=== PATIENT | female | born 1995 | race Caucasian/White ===

== ENCOUNTER 2017-07-09 19:57 | Emergency (ER) | payer OTHER ==
[2017-07-09] MEDS ORDERED: ACETAMINOPHEN 325 MG TABLET PO ONE (21:38)
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
[2017-07-09 22:15] LABS: ABSOLUTE EOSINOPHILS # (AUTO) 0.1 10^3/uL (0.0-0.6); ABSOLUTE LYMPHOCYTES (AUTO) 2.3 10^3/uL (0.5-4.7); ABSOLUTE MONOCYTES (AUTO) 0.3 10^3/uL (0.1-1.4); ABSOLUTE NEUT (AUTO) 6.1 10^3/uL (1.7-8.2); BASOPHILS % (AUTO) 0.4 % (0-2); EOSINOPHILS % (AUTO) 0.7 % (0-6); HEMATOCRIT 40.1 % (36.0-47.0); LYMPHOCYTES % (AUTO) 26.5 % (13-45); MEAN CORPUSCULAR HEMOGLOBIN 30.1 pg (27.0-33.4); MEAN CORPUSCULAR VOLUME 86 fl (80-97); MONOCYTES % (AUTO) 3.6 % (3-13); PLATELET COUNT 246 10^3/uL (150-450); RED BLOOD COUNT 4.65 10^6/uL (3.72-5.28); RED CELL DISTRIBUTION WIDTH 13.8 % (11.5-14.0); SEGMENTED NEUTROPHILS % (AUTO) 68.8 % (42-78); TOTAL CELLS COUNTED % (AUTO) 100 %; WHITE BLOOD COUNT 8.9 10^3/uL (4.0-10.5)
[2017-07-09 22:31] LABS: ALANINE AMINOTRANSFERASE 28 U/L (5-35); ALBUMIN 4.6 g/dL (3.7-5.6); ALKALINE PHOSPHATASE 85 U/L (50-135); ANION GAP 12 (5-19); ASPARTATE AMINO TRANSFERASE 23 U/L (5-30); BILIRUBIN,DIRECT 0.2 mg/dL (0.0-0.4); BILIRUBIN,TOTAL 0.9 mg/dL (0.2-1.3); BLOOD UREA NITROGEN 15 mg/dL (7-20); CALCIUM 9.8 mg/dL (8.4-10.2); CARBON DIOXIDE 27 mmol/L (22-30); CHLORIDE 103 mmol/L (98-107); GLUCOSE 93 mg/dL (75-110); POTASSIUM 3.9 mmol/L (3.6-5.0); SODIUM 141.6 mmol/L (137-145); TOTAL PROTEIN 7.8 g/dL (6.3-8.2)
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
[2017-07-10 01:56] VITALS: BP 109/76
== END 2017-07-10 01:56 | disposition home or self-care (01) ==
LOC: ER 19:57
DX: S09.90XA Unspecified injury of head, initial encounter (principal); H53.8 Other visual disturbances; R51 Headache; R10.30 Lower abdominal pain, unspecified; M54.5 Low back pain; V43.52XA Car driver injured in collision with other type car in traffic accident, initial encounter; R03.0 Elevated blood-pressure reading, without diagnosis of hypertension
CPT/HCPCS: 36415; 70450; 74177; 80053; 84703; 85025; 99284

== ENCOUNTER 2018-03-27 22:39 | Emergency (ER) | payer MEDICAID, OTHER ==
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
[2018-03-28] MEDS ORDERED: ONDANSETRON ODT 4 MG TAB (6 TAB/ER DISP) PO PRN (02:12)
[2018-03-28 02:25] VITALS: BP 115/79
== END 2018-03-28 02:25 | disposition home or self-care (01) ==
LOC: ER 22:39
DX: S09.90XA Unspecified injury of head, initial encounter (principal); R11.2 Nausea with vomiting, unspecified; R51 Headache; W18.2XXA Fall in (into) shower or empty bathtub, initial encounter
CPT/HCPCS: 70450; 99283

== ENCOUNTER 2018-04-17 20:58 | Emergency (ER) | payer SELFPAY ==
[2018-04-17 23:42] LABS: A TYPE INFLUENZA AG NEGATIVE (NEGATIVE); B INFLUENZA AG NEGATIVE (NEGATIVE)
[2018-04-18] MEDS ORDERED: NORMAL SALINE 1000 ML 1,000 ML IV ONE (00:21)
[2018-04-18] MEDS ORDERED: IBUPROFEN 600 MG TABLET PO ONE (00:22)
[2018-04-18] MEDS ORDERED: ONDANSETRON HCL INJ/PF 4 MG/2 ML SDV IV ONE (00:24)
--- NOTE | 2018-04-18 00:27 | ER Document Report ---
Addendum entered and electronically signed by ASAD LOWE PA-C 04/18/18 14:11: Discharge - Discharge Clinical Impression: Viral syndrome Condition: Good Disposition: HOME, SELF-CARE Prescriptions: RX: Naproxen 500 mg PO BID 5 Days #10 tablet Ondansetron [Zofran Odt 4 mg Tablet] 1 - 2 tab PO Q4H PRN #15 tab.rapdis PRN Reason: For Nausea/Vomiting Addendum entered and electronically signed by GILBERT TRUJILLO PA-C 04/18/18 03:46: Discharge - Discharge Clinical Impression: Viral syndrome Condition: Good Disposition: HOME, SELF-CARE Prescriptions: Naproxen 500 mg PO BID 5 Days #10 tablet Ondansetron [Zofran Odt 4 mg Tablet] 1 - 2 tab PO Q4H PRN #15 tab.rapdis PRN Reason: For Nausea/Vomiting Original Note: ED General - General TRAVEL OUTSIDE OF THE [place] IN LAST 30 DAYS: No <ASAD LOWE - Last Filed: 04/18/18 00:22> - General Mode of Arrival: Ambulatory Information source: Patient - HPI Patient complains to provider of: Flu, strep throat, dehydrated, dizzy, fever of 102.3 at 8 PM. Onset: Just prior to arrival <GILBERT TRUJILLO - Last Filed: 04/18/18 03:35> - General Chief Complaint: Flu Symptoms Stated Complaint: FLU SYMPTOMS Time Seen by Provider: 04/17/18 23:59 Notes: 22-year-old female overall well-appearing with no medical problems presents to the emergency department with flulike symptoms, sore throat, complains of dehydration, dizziness, T-max 102.3 at 2000 tonight, chills, shortness of breath, vomiting 2 times. She said symptoms started yesterday. She took DayQuil and NyQuil at 8:00 when her temperature was high and then did not respond so she came to the emergency department. She complains of fever, headache, chills, shortness of breath, nausea, vomiting, dizziness, lightheadedness. She denies cough, abdominal pain, urinary symptoms, rhinorrhea. (ASAD LOWE) - Related Data Allergies/Adverse Reactions: No Known Allergies Allergy (Verified 07/09/17 19:58) Past Medical History - Social History Smoking Status: Unknown if Ever Smoked Family History: Reviewed & Not Pertinent Patient has suicidal ideation: No Patient has homicidal ideation: No Renal/ Medical History: Denies: Hx Peritoneal Dialysis <KEITHRAKELGAMALASAD - Last Filed: 04/18/18 00:22> - General Information source: Patient <GILBERT TRUJILLO - Last Filed: 04/18/18 03:35> Review of Systems - Review of Systems Constitutional: See HPI EENT: See HPI Cardiovascular: See HPI Respiratory: See HPI Gastrointestinal: See HPI Genitourinary: See HPI Female Genitourinary: No symptoms reported Musculoskeletal: No symptoms reported Skin: No symptoms reported Hematologic/Lymphatic: No symptoms reported Neurological/Psychological: See HPI <JANA LOWEEL - Last Filed: 04/18/18 00:22> Physical Exam <ASAD LOWE - Last Filed: 04/18/18 00:22> - General General appearance: Other - Malaised In distress: None - HEENT Head: Normocephalic, Atraumatic Eyes: Normal Conjunctiva: Normal Extraocular movements intact: Yes Pupils: PERRL Ears: Normal External canal: Normal Tympanic membrane: Normal Sinus: Normal Nasal: Normal Mouth/Lips: Normal Mucous membranes: Normal Pharynx: Normal Neck: Normal - Respiratory Respiratory status: No respiratory distress Chest status: Nontender Breath sounds: Normal - Cardiovascular Rhythm: Regular Heart sounds: Normal auscultation Murmur: No - Abdominal Inspection: Normal Distension: No distension Bowel sounds: Normal Tenderness: Nontender - Back Back: Normal - Neurological Neuro grossly intact: Yes Cognition: Normal Orientation: AAOx4 - Psychological Associated symptoms: Normal affect, Normal mood - Skin Skin Temperature: Warm Skin Moisture: Dry Skin Color: Normal Skin Turgor: Elastic Skin irregularity: negative: Rash <GILBERT TRUJILLO Magy - Last Filed: 04/18/18 03:35> - Vital signs Vitals: Temp Pulse Resp BP Pulse Ox 99.7 F 125 H 17 130/74 H 96 04/17/18 21:06 04/17/18 21:06 04/17/18 21:06 04/17/18 21:06 04/17/18 21:06 - Notes Notes: PHYSICAL EXAMINATION: Reviewed vital signs and charting by RN GENERAL: Alert, interacts well. No acute distress. HEAD: Normocephalic, atraumatic. EYES: Pupils equal, round. Extraocular movements intact. ENT: Left TM red slightly bulging, landmarks visualized; right TM partially obscured by cerumen but appeared pearly hurley. Oral mucosa moist, tongue midline, erythema of oropharynx, no tonsillar hypertrophy or exudate. NECK: Full range of motion. Supple. Trachea midline. No lymphadenopathy LUNGS: Clear to auscultation bilaterally, no wheezes, rales, or rhonchi. No respiratory distress. HEART: Sinus tachycardia of 120. No murmur ABDOMEN: soft, non-tender. Non-distended. Bowel sounds present in all 4 quadrants. no McBurney's point tenderness, no Pierson sign. EXTREMITIES: Moves all 4 extremities spontaneously. No edema, No cyanosis. NEUROLOGICAL: Alert and oriented. Normal speech. PSYCH: Normal affect, normal mood. SKIN: Warm, dry, normal turgor. No rashes or lesions noted. (ASAD LOWE) - Extremities Notes: No peripheral edema. Moves all extremities well. (GILBERT TRUJILLO) Course <ASAD LOWE - Last Filed: 04/18/18 00:22> - Laboratory Result Diagrams: 04/18/18 01:26 04/18/18 01:26 <GILBERT TRUJILLO - Last Filed: 04/18/18 03:35> - Re-evaluation Re-evalutation: 04/18/18 00:26 Well-appearing 22-year-old female presents for fluid and dehydration. And is to add a rapid strep as influenza was negative. Heart rate was 120 bpm. Will get a BMP and a CBC. Give her 1 L of normal saline. We will also give her ibuprofen 600 mg. Then reassess. (ASAD LOWE) 04/18/18 03:29 Patient initially presented for multiple complaints including flulike illness, sore throat feeling dizzy and dehydrated. Also had chills sweating and shortness of breath. She was worked up pretty extensively. She was given Motri n for her aches and pains. She is given IV fluids. Initially she was moderately tachycardic at 125 bpm. After liter of fluids and some Motrin, patient is running a pulse rate of 101 bpm. Her labs are unimpressive. Onset is suggestive of viral syndrome. Patient is healthy and does not have any medical comorbidities. I think she will probably do well to go home on symptomatic treatment. (GILBERT TRUJILLO) - Vital Signs Vital signs: Temp Pulse Resp BP Pulse Ox 99.0 F 101 H 15 123/68 96 04/18/18 02:58 04/18/18 02:58 04/18/18 02:58 04/18/18 02:58 04/18/18 02:58 - Laboratory Laboratory results interpreted by me: 04/18/18 04/18/18 01:26 01:26 Hct 35.5 L Plt Count 144 L Sodium 135.9 L Glucose 113 H Discharge <ASAD LOWE - Last Filed: 04/18/18 00:22> <GILBERT TRUJILLO - Last Filed: 04/18/18 03:35> - Discharge Clinical Impression: Viral syndrome Condition: Good Disposition: HOME, SELF-CARE Prescriptions: Naproxen 500 mg PO BID 5 Days #10 tablet Ondansetron [Zofran Odt 4 mg Tablet] 1 - 2 tab PO Q4H PRN #15 tab.rapdis PRN Reason: For Nausea/Vomiting
[2018-04-18 01:36] LABS: ABSOLUTE LYMPHOCYTES (AUTO) 0.9 10^3/uL (0.5-4.7); ABSOLUTE MONOCYTES (AUTO) 0.4 10^3/uL (0.1-1.4); ABSOLUTE NEUT (AUTO) 3.9 10^3/uL (1.7-8.2); BASOPHILS % (AUTO) 0.6 % (0-2); EOSINOPHILS % (AUTO) 0.1 % (0-6); HEMATOCRIT 35.5 % (36.0-47.0); HEMOGLOBIN 12.6 g/dL (12.0-15.5); LYMPHOCYTES % (AUTO) 16.5 % (13-45); MEAN CORPUSCULAR HEMOGLOBIN 30.9 pg (27.0-33.4); MEAN CORPUSCULAR HGB CONC 35.6 g/dL (32.0-36.0); MEAN CORPUSCULAR VOLUME 87 fl (80-97); MONOCYTES % (AUTO) 7.9 % (3-13); PLATELET COUNT 144 10^3/uL (150-450); RED BLOOD COUNT 4.09 10^6/uL (3.72-5.28); RED CELL DISTRIBUTION WIDTH 12.9 % (11.5-14.0); SEGMENTED NEUTROPHILS % (AUTO) 74.9 % (42-78); TOTAL CELLS COUNTED % (AUTO) 100 %; WHITE BLOOD COUNT 5.2 10^3/uL (4.0-10.5)
[2018-04-18 01:48] LABS: ANION GAP 9 (5-19); BLOOD UREA NITROGEN 13 mg/dL (7-20); CALCIUM 8.7 mg/dL (8.4-10.2); CARBON DIOXIDE 25 mmol/L (22-30); CHLORIDE 102 mmol/L (98-107); GLUCOSE 113 mg/dL (75-110); POTASSIUM 3.7 mmol/L (3.6-5.0); SODIUM 135.9 mmol/L (137-145)
[2018-04-18 03:19] VITALS: BP 123/68
[2018-04-18] MEDS ORDERED: TRAMADOL HCL 50 MG TABLET PO ONE (03:26)
== END 2018-04-18 03:50 | disposition home or self-care (01) ==
LOC: ER 20:58
DX: B34.9 Viral infection, unspecified (principal); J02.9 Acute pharyngitis, unspecified; E86.0 Dehydration; R42 Dizziness and giddiness; R50.9 Fever, unspecified
CPT/HCPCS: 99283; 96361; 96374; 36415; 87070; 87880; 85025; 86308; 80048; 87804; J2405; J7030

== ENCOUNTER 2018-12-26 12:45 | Emergency (ER) | payer OTHER ==
--- NOTE | 2018-12-26 12:59 | ER Document Report ---
ED Medical Screen (RME) - General Chief Complaint: Shortness Of Breath Stated Complaint: DIFFICULTY BREATHING Time Seen by Provider: 12/26/18 12:53 Mode of Arrival: Ambulatory Information source: Patient Notes: 23-year-old female presents to ED for cough shortness of breath and chest pain when she takes a deep breath. She states is been this bad since this morning but it has happened in the past. Patient is alert and oriented respirations regular and unlabored at this time. Patient denies any history of bronchitis pneumonia or asthma. She is borderline anemic she denies smoking drinking or use of any illicit drugs. She denies any other medical history. Patient is 28 weeks and due March 24. She states she is 3 para 2 and she is having a girl this time. I have greeted and performed a rapid initial assessment of this patient. A comprehensive ED assessment and evaluation of the patient, analysis of test results and completion of medical decision making process will be conducted by an additional ED providers. TRAVEL OUTSIDE OF THE [place] IN LAST 30 DAYS: No - Related Data Allergies/Adverse Reactions: No Known Allergies Allergy (Verified 10/10/18 15:56) Past Medical History Renal/ Medical History: Denies: Hx Peritoneal Dialysis
[2018-12-26 13:35] LABS: ABSOLUTE EOSINOPHILS # (AUTO) 0.1 10^3/uL (0.0-0.6); ABSOLUTE LYMPHOCYTES (AUTO) 1.6 10^3/uL (0.5-4.7); ABSOLUTE MONOCYTES (AUTO) 0.4 10^3/uL (0.1-1.4); ABSOLUTE NEUT (AUTO) 7.9 10^3/uL (1.7-8.2); BASOPHILS % (AUTO) 0.1 % (0-2); EOSINOPHILS % (AUTO) 0.6 % (0-6); HEMATOCRIT 32.6 % (36.0-47.0); HEMOGLOBIN 11.6 g/dL (12.0-15.5); LYMPHOCYTES % (AUTO) 15.9 % (13-45); MEAN CORPUSCULAR HEMOGLOBIN 31.8 pg (27.0-33.4); MEAN CORPUSCULAR HGB CONC 35.5 g/dL (32.0-36.0); MEAN CORPUSCULAR VOLUME 90 fl (80-97); MONOCYTES % (AUTO) 4.3 % (3-13); PLATELET COUNT 185 10^3/uL (150-450); RED BLOOD COUNT 3.65 10^6/uL (3.72-5.28); RED CELL DISTRIBUTION WIDTH 13.3 % (11.5-14.0); SEGMENTED NEUTROPHILS % (AUTO) 79.1 % (42-78); TOTAL CELLS COUNTED % (AUTO) 100 %
[2018-12-26 13:39] LABS: APPEARANCE,URINE CLEAR; BILIRUBIN,URINE NEGATIVE (NEGATIVE); COLOR,URINE YELLOW; GLUCOSE, URINE NEGATIVE (NEGATIVE); KETONES,URINE NEGATIVE (NEGATIVE); PROTEIN,URINE NEGATIVE (NEGATIVE); URINE SPECIFIC GRAVITY 1.017; UROBILINOGEN,URINE NEGATIVE mg/dL (<2.0)
[2018-12-26 14:00] LABS: ALBUMIN 3.4 g/dL (3.5-5.0); ALKALINE PHOSPHATASE 73 U/L (38-126); ANION GAP 8 (5-19); ASPARTATE AMINO TRANSFERASE 16 U/L (14-36); BILIRUBIN,TOTAL 0.4 mg/dL (0.2-1.3); BLOOD UREA NITROGEN 7 mg/dL (7-20); CALCIUM 8.9 mg/dL (8.4-10.2); CARBON DIOXIDE 21 mmol/L (22-30); CHLORIDE 105 mmol/L (98-107); GLUCOSE 88 mg/dL (75-110); POTASSIUM 4.2 mmol/L (3.6-5.0); TOTAL PROTEIN 6.5 g/dL (6.3-8.2)
[2018-12-26] MEDS ORDERED: NORMAL SALINE 1000 ML 1,000 ML IV ONE (15:11)
[2018-12-26] MEDS ORDERED: ACETAMINOPHEN 325 MG TABLET PO ONE (15:11)
--- NOTE | 2018-12-26 15:13 | ER Document Report ---
ED Respiratory Problem - General Chief Complaint: Shortness Of Breath Stated Complaint: DIFFICULTY BREATHING Time Seen by Provider: 12/26/18 12:53 Mode of Arrival: Ambulatory Information source: Patient Notes: Patient presents 28 weeks . Patient states she was at work when she developed sudden onset of chest pain that she describes as a pressure is been constant. Patient states that she also developed shortness of breath lightheadedness dizziness. Patient denies any cough fever nausea vomiting or diarrhea. Patient denies any abdominal tenderness. Patient denies any history of DVT or PE in the past. Patient denies any history of recent immobilization bedrest or travel. TRAVEL OUTSIDE OF THE [place] IN LAST 30 DAYS: No - HPI Patient complains to provider of: Chest pain, Short of breath. No: Cough Onset: This morning Duration: Continuous Quality of pain: Pressure Pain Level: 2 Context: denies: Recent immobilization, Recent surgery, Smoker Associated symptoms: Chest pain/discomfort, Short of breath. denies: Congestion, Cough, Wheezing Similar symptoms previously: No Recently seen / treated by doctor: No - Related Data Allergies/Adverse Reactions: No Known Allergies Allergy (Verified 12/26/18 13:00) Home Medications: vitamins Past Medical History - General Information source: Patient - Social History Smoking Status: Never Smoker Chew tobacco use (# tins/day): No Frequency of alcohol use: None Drug Abuse: None Occupation: Customer-service Lives with: Spouse/Significant other Family History: Reviewed & Not Pertinent Patient has suicidal ideation: No Patient has homicidal ideation: No - Medical History Medical History: Negative Renal/ Medical History: Denies: Hx Peritoneal Dialysis Surgical Hx: Negative Review of Systems - Review of Systems Constitutional: No symptoms reported. denies: Fever, Recent illness EENT: No symptoms reported. denies: Nose congestion, Nose discharge Cardiovascular: Chest pain, Dizziness Respiratory: Short of breath. denies: Cough Gastrointestinal: No symptoms reported. denies: Abdominal pain, Nausea Genitourinary: No symptoms reported Female Genitourinary: No symptoms reported Musculoskeletal: No symptoms reported. denies: Back pain Skin: No symptoms reported Hematologic/Lymphatic: No symptoms reported Neurological/Psychological: No symptoms reported Physical Exam - Vital signs Vitals: Temp Pulse Resp BP Pulse Ox 97.4 F 88 16 112/74 100 12/26/18 12:54 12/26/18 12:54 12/26/18 12:54 12/26/18 12:54 12/26/18 12:54 - General General appearance: Appears well, Alert In distress: None - HEENT Head: Normocephalic, Atraumatic Eyes: Normal Conjunctiva: Normal Extraocular movements intact: Yes Nasal: Normal Mouth/Lips: Normal Pharynx: Normal Neck: Normal, Supple. No: Lymphadenopathy - Respiratory Respiratory status: No respiratory distress Chest status: Pain with deep breathing Breath sounds: Normal Chest palpation: Tender - Cardiovascular Rhythm: Regular. No: Tachycardia Heart sounds: S1 appreciated, S2 appreciated Murmur: No - Abdominal Inspection: Gravid female Distension: No distension Bowel sounds: Normal Tenderness: Nontender Organomegaly: No organomegaly - Back Back: Normal, Nontender. No: CVA tenderness - Extremities General upper extremity: Normal inspection, Normal ROM General lower extremity: Normal inspection, Normal ROM. No: Edema - Neurological Neuro grossly intact: Yes Cognition: Normal Orientation: AAOx4 Bogdan Coma Scale Eye Opening: Spontaneous [place] Coma Scale Verbal: Oriented Bogdan Coma Scale Motor: Obeys Commands Bogdan Coma Scale Total: 15 - Psychological Associated symptoms: Normal affect, Normal mood - Skin Skin Temperature: Warm Skin Moisture: Dry Skin Color: Normal Course - Re-evaluation Re-evalutation: 12/26/18 17:40 Patient presents complaining of continued chest pain at this time. Consulted with Dr. Segura who recommends consultation with OB. Spoke with Dr. Hernandez who CTA imaging. 12/26/18 19:42 CT reviewed, no concern for PE or pneumonia at this time. Patient with stable vital signs and nontoxic appearance. Patient stable for discharge at this time. Patient encouraged to follow-up with her primary doctor for recheck on Saturday. Discussed worsening symptoms that she should return immediately for. The patient has atypical chest pain as the patient's chest pain is not suggestive of pulmonary embolus, cardiac ischemia, aortic dissection, or other serious etiology. Given the extremely low risk of these diagnoses, evaluation for these possibilities does not appear to be indicated at this time. Patient has been instructed to return if the symptoms worsen or change in any way. - Vital Signs Vital signs: Temp Pulse Resp BP Pulse Ox 98.1 F 88 19 111/64 100 12/26/18 20:02 12/26/18 12:54 12/26/18 20:02 12/26/18 20:02 12/26/18 20:02 - Laboratory Result Diagrams: 12/26/18 13:05 12/26/18 13:05 Laboratory results interpreted by me: 12/26/18 12/26/18 12/26/18 13:05 13:05 13:05 RBC 3.65 L Hgb 11.6 L Hct 32.6 L Seg Neutrophils % 79.1 H Sodium 133.5 L Carbon Dioxide 21 L Creatinine 0.48 L Albumin 3.4 L Leukocyte Esterase Rfl TRACE H - Diagnostic Test Radiology reviewed: Reports reviewed Discharge - Discharge Clinical Impression: Qualifiers: Weeks of gestation: 28 weeks Qualified Code(s): Z3A.28 - 28 weeks gestation of Chest pain Qualifiers: Chest pain type: unspecified Qualified Code(s): R07.9 - Chest pain, unspecified Dyspnea Qualifiers: Dyspnea type: unspecified Qualified Code(s): R06.00 - Dyspnea, unspecified Condition: Stable Disposition: HOME, SELF-CARE Instructions: Acetaminophen, Chest Wall Pain ([facility]), Chest Pain of Unclear Cause ([facility]), Reflux Disease (GERD) ([facility]) Additional Instructions: Return immediately for any new or worsening symptoms Follow-up with your DIVISION ENGINEER provider on Saturday for recheck Forms: Return to Work
--- NOTE | 2018-12-26 16:08 | RADIOLOGY REPORT (SQ) ---
EXAM DESCRIPTION: CHEST 2 VIEWS COMPLETED DATE/TIME: 12/26/2018 3:52 pm REASON FOR STUDY: cp, sob, shield abd COMPARISON: None. EXAM PARAMETERS: NUMBER OF VIEWS: two views TECHNIQUE: Digital Frontal and Lateral radiographic views of the chest acquired. RADIATION DOSE: NA LIMITATIONS: none FINDINGS: LUNGS AND PLEURA: No opacities, masses or pneumothorax. No pleural effusion. MEDIASTINUM AND HILAR STRUCTURES: No masses or contour abnormalities. HEART AND VASCULAR STRUCTURES: Heart normal size. No evidence for failure. BONES: No acute findings. HARDWARE: None in the chest. OTHER: No other significant finding. IMPRESSION: NO ACUTE RADIOGRAPHIC FINDING IN THE CHEST. TECHNICAL DOCUMENTATION: JOB ID: [id number] [employer]- All Rights Reserved Reading location - IP/workstation name: [email or web address]
--- NOTE | 2018-12-26 18:31 | RADIOLOGY REPORT (SQ) ---
EXAM DESCRIPTION: CTA CHEST COMPLETED DATE/TIME: 12/26/2018 6:12 pm REASON FOR STUDY: chuyita morgan COMPARISON: 12/26/2018 TECHNIQUE: CT scan of the chest performed using helical scanning technique with dynamic intravenous contrast injection. Images reviewed with lung, soft tissue and bone windows. Reconstructed coronal and sagittal MPR images reviewed. Additional 3 dimensional post-processing performed to develop Maximal Intensity Projection images ([place] P). All images stored on PACS. All CT scanners at this facility use dose modulation, iterative reconstruction, and/or weight based d osing when appropriate to reduce radiation dose to as low as reasonably achievable (ALARA). [facility]: Dose Right [facility]: CareDose [facility]: Dose Right [facility]: Teradose 4D [facility]: [employer] CONTRAST TYPE AND DOSE: contrast/concentration: Isovue 350.00 mg/ml; Total Contrast Delivered: 56.0 ml; Total Saline Delivered: 80.0 ml Contrast bolus optimized for the pulmonary arteries. Not diagnostic for the aorta. RENAL FUNCTION: BUN 7; creatinine 0.48 RADIATION DOSE: CT Rad equipment meets quality standard of care and radiation dose reduction techniq ues were employed. CTDIvol: 9.9 - 20.0 mGy. DLP: 540 mGy-cm. . LIMITATIONS: None. FINDINGS: LUNGS AND PLEURA: No masses, infiltrates, or pneumothorax. No pleural effusions or pleura l calcifications. AORTA AND GREAT VESSELS: No aneurysm. Contrast bolus not optimized for the aorta. HEART: No pericardial effusion. No significant coronary artery calcifications. PULMONARY ARTERIES: No emboli visualized in the main pulmonary arteries or the segmental branches. HILAR AND MEDIASTINAL STRUCTURES: No identified masses or abnormal nodes. HARDWARE: None in the chest. UPPER ABDOMEN: No significant findings. Limited exam. THYROID AND OTHER SOFT TISSUES: No masses. No adenopathy. BONES: No acute or significant finding. 3D MIPS: Confirm above findings. OTHER: No other significant finding. IMPRESSION: NORMAL CTA OF THE CHEST. NO PULMONARY EMBOLI. COMMENT: Quality ID # [id number]: Final reports with documentation of one or more dose reduction techniques (e.g., Automated exposure control, adjustment of the mA and/or kV according to patient size, use of iterative reconstruction technique) TECHNICAL DOCUMENTATION: JOB ID: [id number] [employer]- All Rights Reserved Reading location - IP/workstation name: [email or web address]
[2018-12-26 20:08] VITALS: BP 111/64
--- NOTE | 2018-12-28 00:30 | EKG REPORT ---
SEVERITY:- NORMAL ECG - SINUS RHYTHM : Confirmed by: Alycia Kitchen 28-Dec-2018 00:29:15
== END 2018-12-26 20:08 | disposition home or self-care (01) ==
LOC: ER 12:45
DX: O26.893 Other specified pregnancy related conditions, third trimester (principal); R07.89 Other chest pain; R07.1 Chest pain on breathing; R06.02 Shortness of breath; R42 Dizziness and giddiness; Z79.899 Other long term (current) drug therapy; Z3A.28 28 weeks gestation of pregnancy
CPT/HCPCS: 93005; 99285; 96360; 96361; 36415; 87086; 85025; 80053; 81001; 71046; 71275; 93010; J7030